=== PATIENT | female | born 1995 | race African-American/Black ===

== ENCOUNTER 2017-10-06 17:13 | Emergency (ER) | payer SELFPAY ==
--- NOTE | 2017-10-06 17:59 | ER Document Report ---
HPI - HPI Patient complains to provider of: sneeze, sore thraot, fever, cough Onset: Other - 5 days Quality of pain: Achy - generalized Pain Level: 4 Context: 22 yo female with sore throat, cough, bodyaches, sweats for 5 days. No chest pain or sob. Associated Symptoms: None Exacerbated by: Denies Relieved by: Denies - ROS ROS below otherwise negative: Yes Systems Reviewed and Negative: Yes All other systems reviewed and negative Past Medical History - General Information source: Patient - Social History Smoking Status: Never Smoker Frequency of alcohol use: None Drug Abuse: None Lives with: Family Family History: Reviewed & Not Pertinent - Medical History Medical History: Negative Surgical Hx: Negative Vertical Provider Document - CONSTITUTIONAL Agree With Documented VS: Yes Exam Limitations: No Limitations General Appearance: No Apparent Distress - INFECTION CONTROL TRAVEL OUTSIDE OF THE [place]. IN LAST 30 DAYS: No - HEENT HEENT: Normocephalic, Pharyngeal Erythema - mild. negative: Conjuctival Injection, Tympanic Membrane Red - NECK Neck: Supple. negative: Lymphadenopathy-Left, Lymphadenopathy-Right - RESPIRATORY Respiratory: Breath Sounds Normal, No Respiratory Distress O2 Sat by Pulse Oximetry: 100 - CARDIOVASCULAR Cardiovascular: Regular Rate, Regular Rhythm - GI/ABDOMEN Gastrointestinal: Abdomen Soft, Abdomen Non-Tender - MUSCULOSKELETAL/EXTREMETIES Musculoskeletal/Extremeties: MAEW - NEURO Level of Consciousness: Awake, Alert - DERM Integumentary: Warm, Dry, No Rash Course - Re-evaluation Re-evalutation: 10/06/17 19:13 Chest x-ray is negative we will send the patient home with a work note for 2 days with rest fluids Tylenol and Motrin. - Vital Signs Vital signs: Temp Pulse Resp BP Pulse Ox 97.3 F 92 16 117/62 100 10/06/17 17:29 10/06/17 17:29 10/06/17 17:29 10/06/17 17:29 10/06/17 17:29 Discharge - Discharge Clinical Impression: Dizziness, Influenza-like illness Condition: Good Disposition: HOME, SELF-CARE Instructions: Acetaminophen, Influenza (OM) [phone] Additional Instructions: plenty of fluids to er if worse chest xray is negative. rest tylenol motrin Forms: Return to Work
--- NOTE | 2017-10-06 18:49 | RADIOLOGY REPORT (SQ) ---
EXAM DESCRIPTION: CHEST PA/LAT COMPLETED DATE/TIME: 10/06/2017 6:32 pm REASON FOR STUDY: cough COMPARISON: None. EXAM PARAMETERS: NUMBER OF VIEWS: two views TECHNIQUE: Digital Frontal and Lateral radiographic views of the chest acquired. RADIATION DOSE: NA LIMITATIONS: none FINDINGS: LUNGS AND PLEURA: No opacities, masses or pneumothorax. No pleural effusion. MEDIASTINUM AND HILAR STRUCTURES: No masses or contour abnormalities. HEART AND VASCULAR STRUCTURES: Heart normal size. No evidence for failure. BONES: No acute findings. HARDWARE: None in the chest. OTHER: No other significant finding. IMPRESSION: NO SIGNIFICANT RADIOGRAPHIC FINDING IN THE CHEST. TECHNICAL DOCUMENTATION: JOB ID: [id number] [employer]- All Rights Reserved
[2017-10-06 20:14] VITALS: BP 109/64
== END 2017-10-06 20:19 | disposition home or self-care (01) ==
LOC: ER 17:13
DX: J11.1 Influenza due to unidentified influenza virus with other respiratory manifestations (principal); R05 Cough; R61 Generalized hyperhidrosis
CPT/HCPCS: 71046; 99283

== ENCOUNTER 2017-12-20 13:53 | Emergency (ER) | payer SELFPAY ==
--- NOTE | 2017-12-20 14:44 | ER Document Report ---
ED Medical Screen (RME) - General Chief Complaint: Urinary Problem Stated Complaint: URINARY PROBLEM Time Seen by Provider: 12/20/17 14:34 Mode of Arrival: Ambulatory Information source: Patient TRAVEL OUTSIDE OF THE U.[place]. IN LAST 30 DAYS: No - HPI Patient complains to provider of: FLANK PAIN Notes: 12/20/17 14:38 RIGHT FLANK PAIN X 3-4 DAYS. INCREASED FREQUENCY. PAIN WITH URINATION. NO FEVER. NO N/V/D. NO HX OF KIDNEY STONES. SHE THINKS THAT SHE SAW BLOOD IN HER URINE. SHE IS TAKING AZO AND STATES THAT HER URINE IS NOW ORANGE. NO VAGINAL BLEEDING OR D/C. PE: NO DISTRESS. TENDERNESS TO PALPATION OF THE RIGHT ABDOMEN. PLAN: LABS, UA, PREG, CT An initial examination was made on the patient as part of the triage process, and it was determined a more comprehensive evaluation was necessary. Initial labs were ordered and patient was transferred to another provider in the ED who assumed care and finished evaluation and plan. - Related Data Allergies/Adverse Reactions: No Known Allergies Allergy (Verified 12/20/17 13:55) Past Medical History Renal/ Medical History: Denies: Hx Peritoneal Dialysis Physical Exam - Vital signs Vitals: Temp Pulse Resp BP Pulse Ox 98.5 F 93 16 120/75 100 12/20/17 14:01 12/20/17 14:01 12/20/17 14:01 12/20/17 14:01 12/20/17 14:01 Course - Vital Signs Vital signs: Temp Pulse Resp BP Pulse Ox 98.5 F 93 16 120/75 100 12/20/17 14:01 12/20/17 14:01 12/20/17 14:01 12/20/17 14:01 12/20/17 14:01
[2017-12-20 16:30] LABS: ABSOLUTE BASOPHILS # (AUTO) 0.1 10^3/uL (0.0-0.2); ABSOLUTE EOSINOPHILS # (AUTO) 0.1 10^3/uL (0.0-0.6); ABSOLUTE LYMPHOCYTES (AUTO) 1.5 10^3/uL (0.5-4.7); ABSOLUTE MONOCYTES (AUTO) 0.6 10^3/uL (0.1-1.4); ABSOLUTE NEUT (AUTO) 8.3 10^3/uL (1.7-8.2); BASOPHILS % (AUTO) 0.6 % (0-2); EOSINOPHILS % (AUTO) 0.6 % (0-6); HEMATOCRIT 39.4 % (36.0-47.0); HEMOGLOBIN 12.8 g/dL (12.0-15.5); MEAN CORPUSCULAR HEMOGLOBIN 28.5 pg (27.0-33.4); MEAN CORPUSCULAR HGB CONC 32.6 g/dL (32.0-36.0); MEAN CORPUSCULAR VOLUME 87 fl (80-97); MONOCYTES % (AUTO) 5.8 % (3-13); RED BLOOD COUNT 4.51 10^6/uL (3.72-5.28); RED CELL DISTRIBUTION WIDTH 15.4 % (11.5-14.0); TOTAL CELLS COUNTED % (AUTO) 100 %; WHITE BLOOD COUNT 10.5 10^3/uL (4.0-10.5)
[2017-12-20 16:39] LABS: APPEARANCE,URINE SLIGHTLY-CLOUDY; BILIRUBIN,URINE NEGATIVE (NEGATIVE); GLUCOSE, URINE NEGATIVE (NEGATIVE); KETONES,URINE TRACE mg/dL (NEGATIVE); LEUKOCYTE ESTERASE,URINE LARGE (NEGATIVE); NITRITE,URINE POSITIVE (NEGATIVE); PROTEIN,URINE 30 mg/dL (NEGATIVE); URINE SPECIFIC GRAVITY 1.015
[2017-12-20 16:41] LABS: COLOR,URINE YELLOW
[2017-12-20 17:04] LABS: PLATELET COUNT 160 10^3/uL (150-450)
--- NOTE | 2017-12-20 17:22 | ER Document Report ---
ED GI/ - General Chief Complaint: Urinary Problem Stated Complaint: URINARY PROBLEM Time Seen by Provider: 12/20/17 14:34 Mode of Arrival: Ambulatory Information source: Patient TRAVEL OUTSIDE OF THE [place] IN LAST 30 DAYS: No - HPI Patient complains to provider of: Abdominal pain Onset: Yesterday Notes: 12/20/17 17:23 Patient is here with complaints of lower abdominal pain. States the pain started a couple days ago. In her lower mid abdomen. She has had some dysuria but this seems to improve. She does report a change in her urine color. She denies any nausea, vomiting, diarrhea. No fever. No rash. No chest pain or shortness of breath. No numbness, tingling, weakness. Last normal menstrual period was earlier this month. Patient is noted to be . This is her first . She denies any vaginal bleeding. No other complaints. - Related Data Allergies/Adverse Reactions: No Known Allergies Allergy (Verified 12/20/17 13:55) Past Medical History - General Information source: Patient - Social History Smoking Status: Never Smoker Chew tobacco use (# tins/day): No Frequency of alcohol use: Occasional Drug Abuse: None Family History: Reviewed & Not Pertinent Patient has suicidal ideation: No Patient has homicidal ideation: No Renal/ Medical History: Denies: Hx Peritoneal Dialysis Review of Systems - Review of Systems -: Yes All other systems reviewed and negative Physical Exam - Vital signs Vitals: Temp Pulse Resp BP Pulse Ox 98.5 F 93 16 120/75 100 12/20/17 14:01 12/20/17 14:01 12/20/17 14:01 12/20/17 14:01 12/20/17 14:01 - Notes Notes: GENERAL: alert, cooperative, nontoxic, no distress. HEAD: normocephalic, atraumatic EYES: conjunctiva pink without discharge, no external redness or swelling. EARS: no external swelling, no external redness NOSE: atraumatic, no external swelling MOUTH/THROAT: mucous membranes moist and pink, posterior pharynx without erythema, swelling, exudate. No trismus or drooling. NECK: soft, supple, full range of motion, no meningismus. CHEST: no distress, lungs clear and equal throughout. No wheezing, rales, rhonchi. CARDIAC: regular rate and rhythm, no murmur, normal capillary refill, normal pulses. No peripheral edema noted. ABDOMEN: Soft, tenderness to the suprapubic area. No rebound tenderness or guarding. No right or left lower quadrant tenderness. No pain at McBurney's point. BACK: full range of motion, no CVA tenderness. EXTREMITIES: full range of motion of all extremities. No redness, no swelling. NEURO: alert and oriented x 3, no focal deficits, full range of motion of all extremities. PYSCH: appropriate mood, affect. Patient is cooperative. SKIN: pink, warm, dry, no rash. Course - Re-evaluation Re-evalutation: 12/20/17 18:53 Patient is nontoxic appearing with stable vitals. She confirms with complaints of dysuria as well as some suprapubic pain. She is a mild suprapubic tenderness on exam. No significant right or left lower quadrant abdominal tenderness no tenderness at McBurney's point. The patient was noted to be on her urinalysis. Quantitative hCG has been ordered and is 48. Patient does appear to have a urinary tract infection on UA. Urine cultures currently pending. She was given a dose of Keflex in the emergency department. Due to the fact that the patient had tenderness, transvaginal ultrasound has been ordered. I am currently awaiting the results of the ultrasound. The low suspicion for ectopic , but this is obviously 1 of the most significant differentials in this patient at this time. If her ultrasound shows no intrauterine which is likely will due to the low hCG, she will be instructed to follow-up with [facility] in the next few days for repeat quant and repeat exam. Patient will be discharged home on Keflex for her urinary tract infection. She will be given referral to [facility]. She will be instructed to return the emergency department immediately if she develops any worsening pain, high fever, severe bleeding, persistent vomiting, or has any further concerns at all. Patient states that she will be traveling to [place] over the weekend. I explained that if she has any worsening pain while she is there, she needs to be seen and evaluated in the emergency department in [place] immediately. Otherwise she can follow-up with [facility] at the next available appointment when she comes back in town. Was going to write the patient vitamins, she states that she did not swallow pills very well. Told her to take 2 Flintstones chewables. The patient's emergency department workup and current diagnosis were explained to the patient and or family. Follow-up instructions were provided. Medications if prescribed were discussed. Instructions for when to return to the emergency department including specific worrisome symptoms were discussed with the patient and/or family. - Vital Signs Vital signs: Temp Pulse Resp BP Pulse Ox 98.5 F 93 16 120/75 100 12/20/17 14:01 12/20/17 14:01 12/20/17 14:01 12/20/17 14:01 12/20/17 14:01 - Laboratory Result Diagrams: 12/20/17 16:00 12/20/17 17:45 Laboratory results interpreted by me: 12/20/17 12/20/17 12/20/17 16:00 16:00 17:45 RDW 15.4 H Seg Neutrophils % 79.0 H Absolute Neutrophils 8.3 H Calcium Total Protein Albumin Beta HCG, Quant 48.79 H Urine Protein 30 H Urine Ketones TRACE H Urine Nitrite POSITIVE H Urine Urobilinogen 4.0 H Ur Leukocyte Esterase LARGE H Urine Ascorbic Acid 40 H Urine HCG, Qual POSITIVE H 12/20/17 17:45 RDW Seg Neutrophils % Absolute Neutrophils Calcium 10.5 H Total Protein 8.8 H Albumin 5.1 H Beta HCG, Quant Urine Protein Urine Ketones Urine Nitrite Urine Urobilinogen Ur Leukocyte Esterase Urine Ascorbic Acid Urine HCG, Qual Discharge - Discharge Clinical Impression: Qualifiers: Weeks of gestation: less than 8 weeks Qualified Code(s): Z3A.01 - Less than 8 weeks gestation of UTI (urinary tract infection) Qualifiers: Urinary tract infection type: acute cystitis Abdominal pain Qualifiers: Abdominal location: lower abdomen, unspecified Qualified Code(s): R10.30 - Lower abdominal pain, unspecified Condition: Stable Disposition: HOME, SELF-CARE Instructions: Abdominal Pain ([facility]), Ectopic Precaution ([facility]), Pelvic Pain in ([facility]), Urinary Tract Infection ([facility]) Additional Instructions: Follow-up with [facility] at the next available appointment to have your hormone rechecked. Today it was 48. Follow-up sooner for worsening pain, fever , severe vaginal bleeding, persistent vomiting, passing out, or for any further concerns. You may take 2 chewable [place] vitamins once a day. Take all antibiotics for urinary tract infection. Drink lots of water. Prescriptions: Cephalexin Monohydrate [Keflex 250 mg/5 ml Susp] 500 mg PO TID #300 ml Referrals: MARILYN IZQUIERDO MD [ACTIVE STAFF] - Follow up as needed
[2017-12-20] MEDS ORDERED: CEPHALEXIN 500 MG CAPSULE PO ONE (17:50)
[2017-12-20 18:09] LABS: ALANINE AMINOTRANSFERASE 21 U/L (9-52); ALBUMIN 5.1 g/dL (3.5-5.0); ALKALINE PHOSPHATASE 89 U/L (38-126); ANION GAP 18 (5-19); ASPARTATE AMINO TRANSFERASE 24 U/L (14-36); BILIRUBIN,DIRECT 0.4 mg/dL (0.0-0.4); BILIRUBIN,TOTAL 0.9 mg/dL (0.2-1.3); BLOOD UREA NITROGEN 8 mg/dL (7-20); CALCIUM 10.5 mg/dL (8.4-10.2); CARBON DIOXIDE 23 mmol/L (22-30); CHLORIDE 104 mmol/L (98-107); GLUCOSE 80 mg/dL (75-110); LIPASE 34.2 U/L (23-300); TOTAL PROTEIN 8.8 g/dL (6.3-8.2)
--- NOTE | 2017-12-20 19:00 | RADIOLOGY REPORT (SQ) ---
EXAM DESCRIPTION: U/S OB TRANSVAG W/DOPPLER COMPLETED DATE/TIME: 12/20/2017 6:49 pm REASON FOR STUDY: preg, abdo pain COMPARISON: None. TECHNIQUE: Transvaginal static and realtime grayscale images acquired of the pelvis. Additional sb cted spectral and color Doppler images recorded. All images stored on PACs. bHC LIMITATIONS: None. FINDINGS: UTERUS: No masses. No anomalies. GESTATIONAL SAC: Not visualized YOLK SAC: Not visualized POLE: Not visualized RIGHT ADNEXA: Right ovary not visualized LEFT ADNEXA: Left ovary not visualized FREE FLUID: Small amount of free fluid is identified. OTHER: No other significant finding. IMPRESSION: No IUP is identified. BHCG LEVEL APPROPRIATE FOR ENDOMETRIAL FINDINGS. CONSIDER F/U BHCG AND/OR ULTRASOUND FOR VERIFICATION AND TO EXCLUDE ECTOPIC . Trimester of : First - 0 to 13 weeks. TECHNICAL DOCUMENTATION: JOB ID: [id number] [employer]- All Rights Reserved Reading location - IP/workstation name: [email or web address]
[2017-12-20 20:45] VITALS: BP 117/59
== END 2017-12-20 19:45 | disposition home or self-care (01) ==
LOC: ER 13:53
DX: O23.11 Infections of bladder in pregnancy, first trimester (principal); O26.891 Other specified pregnancy related conditions, first trimester; R10.30 Lower abdominal pain, unspecified; Z3A.01 Less than 8 weeks gestation of pregnancy
CPT/HCPCS: 36415; 76817; 80053; 81001; 81025; 83690; 84702; 85025; 86900; 86901; 93976; 99284

== ENCOUNTER 2018-08-16 08:33 | Outpatient (CLI) | payer MEDICAID ==
[2018-08-16] MEDS ORDERED: NORMAL SALINE 250 ML IV PRN (08:45)
[2018-08-16] MEDS ORDERED: FERRIC CARBOXYMALTOSE 750 MG in NORMAL SALINE 250 ML IV PRN (08:45)
[2018-08-16 09:01] VITALS: BP 116/71
== END 2018-08-16 09:49 | disposition home or self-care (01) ==
LOC: II 08:33 → 5TH 08:43 → II 09:49
PROVIDERS: ATTEND Internal Medicine Hematology & Oncology
DX: D50.9 Iron deficiency anemia, unspecified (principal); O99.013 Anemia complicating pregnancy, third trimester
CPT/HCPCS: 96365; J7050; J1439

== ENCOUNTER 2018-08-23 07:58 | Outpatient (CLI) | payer MEDICAID ==
[~2018-08-23 07:58] MED LIST: FERRIC CARBOXYMALTOSE 750 MG in NORMAL SALINE 250 ML IV PRN; NORMAL SALINE 250 ML IV PRN
[2018-08-23 08:28] VITALS: BP 109/61
== END 2018-08-23 09:38 | disposition home or self-care (01) ==
LOC: 5TH 07:58 → II 07:58
PROVIDERS: ATTEND Internal Medicine Hematology & Oncology
PROC: 3E033GC Introduction of Other Therapeutic Substance into Peripheral Vein, Percutaneous Approach (ICD-10-PCS; principal; 2018-08-23)
DX: O99.013 Anemia complicating pregnancy, third trimester (principal); D50.9 Iron deficiency anemia, unspecified
CPT/HCPCS: 96365; J7050; J1439; 96367

== ENCOUNTER 2018-08-26 06:42 | Inpatient (IN) | payer MEDICAID ==
[2018-08-26 07:32] LABS: APPEARANCE,URINE SLIGHTLY-CLOUDY; BILIRUBIN,URINE NEGATIVE (NEGATIVE); COLOR,URINE YELLOW; GLUCOSE, URINE NEGATIVE (NEGATIVE); KETONES,URINE NEGATIVE (NEGATIVE); LEUKOCYTE ESTERASE,URINE NEGATIVE (NEGATIVE); NITRITE,URINE NEGATIVE (NEGATIVE); PROTEIN,URINE NEGATIVE (NEGATIVE); URINE SPECIFIC GRAVITY 1.005; UROBILINOGEN,URINE NEGATIVE mg/dL (<2.0)
[2018-08-26] MEDS ORDERED: RINGERS SOLUTION,LACTATED 1,000 ML IV PRN (07:40)
[2018-08-26] MEDS ORDERED: RINGERS SOLUTION,LACTATED 1,000 ML IV ONE (07:40)
--- NOTE | 2018-08-26 07:52 | Admission Physical ---
Datetime Report Generated by CPN: 08/26/2018 07:51 CURRENT ADMISSION Chief Complaint: Suspected Ruptured Membranes Indication for Induction: PROM Admit Impression : Term, Intrauterine ; No Active Labor; Ruptured Membranes Admit Plan: Admit to Unit; Initiate Labor Induction Protocol ALLERGIES Medication Allergies: No Known Allergies (12/20/2017) OBSTETRICAL HISTORY EDC: 09/04/2018 00:00 PHYSICAL EXAM General: Normal HEENT: Normal Neurologic: Normal Thyroid: Deferred Heart: Normal Lungs: Normal Breast: Deferred Back: Normal Abdomen: Normal Genitourinary Exam: Normal Extremities: Normal DTRs: Normal Pelvic Type: Adequate Vital Signs: Reviewed VAGINAL EXAM Dilatation: 1 Effacement: 80 Station: 0 MEMBRANES Membranes: Ruptured Amniotic Fluid Color: Clear FETUS A EGA: 38.5 Monitoring: External US FHR- Baseline: 155 Variability: Moderate 6-25bpm Accelerations: 15X15 Decelerations: None FHR Category: Category II Presentation: Vertex Admit Comment: 23yo at 38+5ega presents for LOF, clear at 0630. Cvx 1/80/0. Actimprom positive. GBS negative. Chlam pos early in preg - good STEFF on 06/06 then repeat Chlam/GC neg on 08/09. Anemia - Dr Rohityaflori referral was done as outpatient. ASCUS pap with HRHPV - needs colpo/pap pp. Surgical consult for cyst on eyelid done as outpatient. Admit for pitocin and possible cooks catheter placement. Anticipate . 4#10oz at 32wks (07/12) INFORMED CONSENT Informed Consent Obtained: Vaginal Delivery; Induction of Labor; Risks, Benefits and Alternatives Discussed Signature: with User ID: [email or web address]
[2018-08-26] MEDS ORDERED: OXYTOCIN/NORMAL SALINE 20 UNIT/1,000 ML RTUINJ ONE (08:06)
[2018-08-26] MEDS ORDERED: MISOPROSTOL 0.2 MG TABLET ONE (08:06)
[2018-08-26] MEDS ORDERED: LIDOCAINE 1% INJ-PF (10 MG/ML) 30 ML SDV ONE (08:06)
[2018-08-26 08:08] LABS: URINE AMPHETAMINES SCREEN NEGATIVE; URINE BARBITURATES SCREEN NEGATIVE; URINE BENZODIAZEPINES SCREEN NEGATIVE; URINE COCAINE SCREEN NEGATIVE; URINE MARIJUANA (THC) SCREEN NEGATIVE; URINE METHADONE SCREEN NEGATIVE; URINE PHENCYCLIDINE SCREEN NEGATIVE
[2018-08-26 08:12] LABS: ABSOLUTE EOSINOPHILS # (AUTO) 0.1 10^3/uL (0.0-0.6); ABSOLUTE MONOCYTES (AUTO) 0.9 10^3/uL (0.1-1.4); ABSOLUTE NEUT (AUTO) 8.5 10^3/uL (1.7-8.2); BASOPHILS % (AUTO) 0.5 % (0-2); EOSINOPHILS % (AUTO) 0.8 % (0-6); HEMATOCRIT 22.8 % (36.0-47.0); LYMPHOCYTES % (AUTO) 9.4 % (13-45); MEAN CORPUSCULAR HEMOGLOBIN 21.8 pg (27.0-33.4); MEAN CORPUSCULAR HGB CONC 31.4 g/dL (32.0-36.0); MEAN CORPUSCULAR VOLUME 70 fl (80-97); MONOCYTES % (AUTO) 8.5 % (3-13); PLATELET COUNT 215 10^3/uL (150-450); RED BLOOD COUNT 3.28 10^6/uL (3.72-5.28); RED CELL DISTRIBUTION WIDTH 17.9 % (11.5-14.0); SEGMENTED NEUTROPHILS % (AUTO) 80.8 % (42-78); TOTAL CELLS COUNTED % (AUTO) 100 %; WHITE BLOOD COUNT 10.6 10^3/uL (4.0-10.5)
[2018-08-26 08:14] LABS: HEMOGLOBIN 7.2 g/dL (12.0-15.5)
[2018-08-26] MEDS ORDERED: OXYTOCIN/NORMAL SALINE 20 UNIT/1,000 ML RTUINJ IV PRN ×2 (09:02→15:37)
[2018-08-26] MEDS ORDERED: PROMETHAZINE HCL INJ 25 MG/1 ML VIAL ONE (12:26)
[2018-08-26] MEDS ORDERED: NALBUPHINE HCL INJ 10 MG/1 ML AMPULE ONE (12:26)
[2018-08-26] MEDS ORDERED: NALBUPHINE HCL INJ 10 MG/1 ML AMPULE INJ ONE (12:37)
[2018-08-26] MEDS ORDERED: PROMETHAZINE HCL INJ 25 MG/1 ML VIAL IV ONE (12:37)
[2018-08-26] MEDS ORDERED: OXYTOCIN 10 UNIT/ML VIAL ONE (15:19)
[2018-08-26] MEDS ORDERED: DIPH/PERTUSS(ACELL)/TETANUS VAC/PF 0.5 ML SYR (>=10YO) IM PRN (15:37)
[2018-08-26] MEDS ORDERED: ACETAMINOPHEN 650 MG SUPP.RECT PR PRN (15:37)
[2018-08-26] MEDS ORDERED: BENZOCAINE/MENTHOL AEROSOL SPRAY 56 ML TOP PRN (15:37)
[2018-08-26] MEDS ORDERED: PSEUDOEPHEDRINE HCL 30 MG TABLET PO PRN (15:37)
[2018-08-26] MEDS ORDERED: MAGNESIUM HYDROXIDE SUSP 30 ML UDCUP PO PRN (15:37)
[2018-08-26] MEDS ORDERED: DIPHENHYDRAMINE HCL 25 MG CAPSULE PO PRN (15:37)
[2018-08-26] MEDS ORDERED: MEASLES,MUMPS&RUBELLA VACC/PF 0.5 ML VIAL SUBCUT PRN (15:37)
[2018-08-26] MEDS ORDERED: PROMETHAZINE HCL 25 MG TABLET PO PRN (15:37)
[2018-08-26] MEDS ORDERED: ACETAMINOPHEN WITH CODEINE #3 TABLET PO PRN ×2 (15:37)
[2018-08-26] MEDS ORDERED: ZOLPIDEM TARTRATE 5 MG TABLET PO PRN (15:37)
[2018-08-26] MEDS ORDERED: PROMETHAZINE HCL INJ 25 MG/1 ML VIAL IV PRN (15:37)
[2018-08-26] MEDS ORDERED: DIBUCAINE 1% OINTMENT 28 GM TP PRN (15:37)
[2018-08-26] MEDS ORDERED: GLYCERIN/WITCH HAZEL LEAF 1 EACH MED..PAD TP PRN (15:37)
[2018-08-26] MEDS ORDERED: NA PHOS,M-B/NA PHOS,DI-BA (ADULT) 133 ML ENEMA PR PRN (15:37)
[2018-08-26] MEDS ORDERED: PROMETHAZINE HCL 25 MG SUPP.RECT PR PRN (15:37)
--- NOTE | 2018-08-26 17:04 | Delivery Summary ---
Del Sum A-C Datetime Report Generated by CPN: 08/26/2018 17:04 DELIVERY PERSONNEL DELIVERY PERSONNEL: [id number] Delivery Doctor:: Geneva Best MD Labor and Delivery Nurse:: Philly Ayoub RN Nursery Nurse:: Khadra Tran RN Teacher Of [employer]/EVENT HOST: Phuc Roth, RN MATERNAL INFORMATION Delivery Anesthesia: None Medications After Delivery: Pitocin Drip 20 Units/1000ml NSS Estimated Blood Loss (ml): 200 Maternal Complications: None LABOR SUMMARY EDC: 09/04/2018 00:00 No. Babies in Womb: 1 Attempted: No Labor Anesthesia: IV Sedation LABOR INFORMATION Reason for Induction: Premature Rupture of Membranes Onset of Labor: 08/26/2018 06:30 Complete Dilatation: 08/26/2018 15:03 Cervical Ripening Agents: Erickson Balloon Oxytocin: Induction Group B Beta Strep: negative (Annotations: Data stored by [facility] on behalf of user) Antibiotics # of Doses: n/a Antibiotics Time of Last Dose: n/a Name of Antibiotic Given: n/a Steroids Given: None Reason Steroids Not Administered: Not Applicable Other Reason Not Administered: n/a MEMBRANES Membranes Rupture Method: Spontaneous Rupture of Membranes: 08/26/2018 06:30 Length of Rupture (hr): 8.77 Amniotic Fluid Color: Clear Amniotic Fluid Amount: Small Amniotic Fluid Odor: Normal STAGES OF LABOR Stage 1 hr: 8 Stage 1 min: 33 Stage 2 hr: 0 Stage 2 min: 13 Stage 3 hr: 0 Stage 3 min: 4 Total Time in Labor hr: 8 Total Time in Labor min: 50 VAGINAL DELIVERY Episiotomy: None Laceration #1: Vaginal Laceration Extension #1: N/A Laceration Repair: No Sponge Count Correct: Yes Sharps Count Correct: Yes CSECTION DELIVERY Primary Indication: N/A Secondary Indication: N/A CSection Incidence: N/A Labor: N/A Elective: N/A CSection Incision: N/A BABY A INFORMATION Delivery Date/Time: 08/26/2018 15:16 Method of Delivery: Vaginal Born in Route : No : N/A Forceps: N/A Vacuum Extraction: N/A Shoulder Dystocia : No PRESENTATION/POSITION BABY A Presentation: Cephalic Cephalic Presentation: Vertex Vertex Position: Left Occipital Anterior Breech Presentation: N/A PLACENTA INFORMATION BABY A Placenta Delivery Time : 08/26/2018 15:20 Placenta Method of Delivery: Spontaneous Placenta Status: Delivered SCORES BABY A Heart Rate 1 min: >100 bpm Resp Effort 1 min: Good Cry Reflex Irritability 1 min: Cough or Sneeze or Pulls Away Muscle Tone 1 min: Active Motion Color 1 min: Body [place], Extremities Blue Resuscitation Effort 1 min: Tactile Stimulation SCORE 1 MIN: 9 Heart Rate 5 min: >100 bpm Resp Effort 5 min: Good Cry Reflex Irritability 5 min: Cough or Sneeze or Pulls Away Muscle Tone 5 min: Active Motion Color 5 min: Body [place], Extremities Blue SCORE 5 MIN: 9 INFORMATION BABY A Gestational Age at Delivery: 38.5 Gestational Status: Early Term- 37- 38.6 Weeks Infant Outcome : Liveborn Infant Condition : Stable Infant Sex: Female IDENTIFICATION BABY A Infant Verification Date/Time: 08/26/2018 15:44 ID Band Number: [id number] Mother's Name Verified: Yes RN Verifying Infant: B Chelsea RN Additional Verifying Personnel: Segun Correa RN WEIGHT/LENGTH BABY A Infant Birthweight (gm): 3243 Weight (lb): 7 Infant Weight (oz): 2 Infant Length (in): 19.50 Length (cm): 49.53 CORD INFORMATION BABY A No. Cord Vessels: 3 Nuchal Cord : N/A Cord Blood Taken: Yes-For Storage (Mom's Blood type +) Infant Suction: Mouth ASSESSMENT BABY A Infant Complications: None Physical Findings at Delivery: Within Normal Limits Infant Respirations: Appears Normal Skin to Skin: Yes [employer] Called : No Infant Care By: B Chelsea RN Transferred To: Remains with Mother BABY B INFORMATION : N/A SIGNATURES Signature: with User ID: [email or web address]
[2018-08-26] MEDS: DOCUSATE SODIUM 100 MG CAPSULE PO SCH (17:55)
[2018-08-26] MEDS: FERROUS SULFATE 325 MG TABLET PO SCH (17:55)
[2018-08-26] MEDS: FAMOTIDINE 20 MG TABLET PO SCH (21:26)
[2018-08-26] MEDS: IBUPROFEN 800 MG TABLET PO SCH (21:26)
[2018-08-27 06:17] LABS: HEMATOCRIT 23.2 % (36.0-47.0); MEAN CORPUSCULAR HEMOGLOBIN 21.6 pg (27.0-33.4); MEAN CORPUSCULAR VOLUME 70 fl (80-97); PLATELET COUNT 241 10^3/uL (150-450); RED BLOOD COUNT 3.32 10^6/uL (3.72-5.28)
[2018-08-27 06:22] LABS: HEMOGLOBIN 7.2 g/dL (12.0-15.5)
[2018-08-27] MEDS: FAMOTIDINE 20 MG TABLET PO SCH (09:06)
[2018-08-27] MEDS: DOCUSATE SODIUM 100 MG CAPSULE PO SCH ×2 (09:06→18:03)
[2018-08-27] MEDS: SENNOSIDES/DOCUSATE 8.6-50 MG 1 EACH TABLET PO SCH (09:06)
[2018-08-27] MEDS: PRENATAL VITAMIN W DHA CAPSULE PO SCH (09:06)
[2018-08-27] MEDS: FERROUS SULFATE 325 MG TABLET PO SCH ×2 (09:06→18:03)
[2018-08-27] MEDS: IBUPROFEN 800 MG TABLET PO SCH ×2 (09:06→14:54)
--- NOTE | 2018-08-27 09:55 | PDOC PROGRESS REPORT ---
Subjective-OB Progress Note for:: 08/27/18 Subjective: Pt doing well, no concerns. She reports light bleeding, reg diet and voiding without difficulty. Physical Exam (OB) Vital Signs: Temp Pulse Resp BP Pulse Ox 98.8 F 106 H 16 115/58 L 100 08/26/18 20:05 08/26/18 20:05 08/26/18 20:05 08/26/18 20:05 08/26/18 20:05 Intake & Output 08/26/18 08/27/18 08/28/18 06:59 06:59 06:59 Intake Total 1000 500 Balance 1000 500 Weight 59 kg - Abdomen Description: Soft, Flat Hernia Present: No Fundal Description: Firm, Midline Fundal Height: u/u - u/2 Objective-Diagnostic Laboratory: 08/27/18 06:05 08/27/18 06:05 WBC 16.0 H RBC 3.32 L Hgb 7.2 L Hct 23.2 L MCV 70 L MCH 21.6 L MCHC 31.0 L RDW 18.0 H Plt Count 241 Assessment and Plan(PN) - Assessment and Plan (1) Vaginal delivery Is this a current diagnosis for this admission?: Yes (2) Premature rupture of membranes Qualifiers: PROM onset of labor timing: onset of labor within 24 hours of rupture Is this a current diagnosis for this admission?: Yes - Time Spent with Patient Time with patient: Less than 15 minutes Medications reviewed and adjusted accordingly: Yes - Disposition Anticipated Discharge: Home Within: within 24 hours
[2018-08-28] MEDS: FAMOTIDINE 20 MG TABLET PO SCH ×2 (01:24→09:21)
[2018-08-28] MEDS: IBUPROFEN 800 MG TABLET PO SCH ×2 (01:24→07:03)
[2018-08-28 08:30] VITALS: BP 105/62
--- NOTE | 2018-08-28 08:53 | PDOC DISCHARGE SUMMARY ---
Final Diagnosis Discharge Date: 08/28/18 - Final Diagnosis (1) Vaginal delivery Is this a current diagnosis for this admission?: Yes (2) Premature rupture of membranes Is this a current diagnosis for this admission?: Yes Discharge Data - Discharge Medication Home Medications: No Home Medications 08/26/18 Reason(s) for Admission: PROM Procedures: NST Intrapartum Procedure(s): Spontaneous Vaginal Delivery Complication(s): Laceration-Vaginal Laceration-Degree: 1st - Diagnosis Test Laboratory: Temp Pulse Resp BP Pulse Ox 98.8 F 106 H 16 115/58 L 100 08/26/18 20:05 08/26/18 20:05 08/26/18 20:05 08/26/18 20:05 08/26/18 20:05 08/26/18 08/26/18 08/27/18 06:48 07:51 06:05 RBC 3.28 L 3.32 L Hgb 7.2 L 7.2 L Hct 22.8 L 23.2 L Urine Opiates Screen NEGATIVE - Discharge information/Instructions Discharge Activity: Balance Activity w/Rest, Pelvic Rest Discharge Diet: Regular Disposition: HOME, SELF-CARE Follow up with: [facility] in: 3, 4, Weeks
[2018-08-28] MEDS: DOCUSATE SODIUM 100 MG CAPSULE PO SCH (09:20)
[2018-08-28] MEDS: FERROUS SULFATE 325 MG TABLET PO SCH (09:20)
[2018-08-28] MEDS: SENNOSIDES/DOCUSATE 8.6-50 MG 1 EACH TABLET PO SCH (09:21)
[2018-08-28] MEDS: PRENATAL VITAMIN W DHA CAPSULE PO SCH (09:21)
== END 2018-08-28 13:15 | disposition home or self-care (01) | DRG 807 ==
LOC: LC 06:42 → LR 07:42 → 2S 17:32
PROVIDERS: ADMIT Student in an Organized Health Care Education/Training Program; ATTEND Student in an Organized Health Care Education/Training Program
PROC: 10E0XZZ Delivery of Products of Conception, External Approach (ICD-10-PCS; principal; 2018-08-26)
PROC: 4A1HXCZ Monitoring of Products of Conception, Cardiac Rate, External Approach (ICD-10-PCS; 2018-08-26)
PROC: 3E02340 Introduction of Influenza Vaccine into Muscle, Percutaneous Approach (ICD-10-PCS; 2018-08-28)
PROC: 3E0234Z Introduction of Serum, Toxoid and Vaccine into Muscle, Percutaneous Approach (ICD-10-PCS; 2018-08-28)
DX: O42.02 Full-term premature rupture of membranes, onset of labor within 24 hours of rupture (principal); Z37.0 Single live birth; O70.0 First degree perineal laceration during delivery; O99.02 Anemia complicating childbirth; D64.9 Anemia, unspecified; Z3A.38 38 weeks gestation of pregnancy; Z23 Encounter for immunization
CPT/HCPCS: 36415; 80307; 81005; 84112; 85025; 85027; 86592; 86850; 86900; 86901; 90471; 90686; 90715; C1758; G0008; J2300; J2550; J2590; J3490